=== PATIENT | male | born 1940 ===

== ENCOUNTER 2018-08-17 12:37 | Inpatient (IN) ==
[2018-08-17 14:00] LABS: Basophils % 0.4 %; Eosinophils # 0.1 K/mcL (0.0-0.6); Eosinophils % 0.5 %; Hematocrit 42.8 % (37.5-50.1); Hemoglobin 14.2 g/dL (12.9-16.9); Immature Granulocytes % 0.2 % (0-4); Lymphocytes # 0.7 K/mcL (0.6-4.6); Lymphocytes % 6.7 %; Mean Corpuscular HGB Conc 33.2 g/dL (31.6-35.5); Mean Corpuscular Hemoglobin 30.4 pg (28.0-33.3); Mean Corpuscular Volume 91.6 fL (83.0-100.0); Mean Platelet Volume 11.3 fL (9.4-12.4); Monocytes # 0.7 K/mcL (0.0-1.3); Monocytes % 7.3 %; Neutrophils # 8.3 K/mcL (1.6-8.9); Platelet Count 198 K/mcL (140-400); Red Blood Count 4.67 M/mcL (4.19-5.50); Red Cell Distribution Width 14.8 % (11.5-14.5); Segmented Neutrophils % 84.9 %; White Blood Count 9.7 K/mcL (4.3-11.1)
[2018-08-17 14:07] LABS: Bilirubin,Urine Negative (Negative); Blood,Urine Negative (Negative); Clarity,Urine Clear (Clear); Color,Urine Yellow (Yellow); Glucose,Urine (UA) Normal (Normal); INR 1.5; Ketones,Urine Negative (Negative); Leukocyte Esterase,Urine Negative (Negative); Nitrite,Urine Negative (Negative); PH,Urine 5.5 pH Units (5.0-8.0); Protein,Urine Trace mg/dL (Neg-Trace); Prothrombin Time 17.4 Seconds (9.4-12.1); Urobilinogen,Urine Normal (Normal)
[2018-08-17 14:10] LABS: Activated Partial Thrombo Time 33.1 Seconds (26.0-36.0)
[2018-08-17 14:18] LABS: Troponin I < 0.03 ng/mL (< 0.04)
[2018-08-17 14:19] LABS: Acetaminophen < 10 mcg/mL (10-20); Alanine Aminotransferase 30 Units/L (7-52); Albumin 4.2 g/dL (3.5-5.7); Albumin/Globulin Ratio 1.1 (1.1-2.2); Alkaline Phosphatase 52 Units/L (34-104); Aspartate Amino Transferase 30 Units/L (13-39); BUN/Creatinine Ratio 14 (6-26); Bilirubin,Total 0.9 mg/dL (0.3-1.0); Blood Urea Nitrogen 19 mg/dL (8-23); Calcium 9.2 mg/dL (8.6-10.3); Carbon Dioxide 22 mEq/L (23-29); Chloride 109 mEq/L (98-107); Ethanol < 10 mg/dL (Less than 10); Globulin 3.8 g/dL (2.4-3.5); Glucose 98 mg/dL (70-105); Magnesium 2.3 mg/dL (1.6-2.6); Osmolality,Calculated 290 (280-300); Phosphorous 2.3 mg/dL (2.7-4.5); Salicylate < 2.5 mg/dL (15.0-30.0); Sodium 139 mEq/L (136-145); eGFR For African Americans > 60 (> 60); eGFR For Non-African Americans 52 (> 60)
[2018-08-17 14:21] LABS: Amphetamine Screen,Urine Negative ng/mL (Cutoff=1000); Barbiturate Screen,Urine Negative ng/mL (Cutoff=200); Benzodiazepines Screen,Urine Negative ng/mL (Cutoff=200); Cannabinoid Screen,Urine Negative ng/mL (Cutoff = 50); Cocaine Screen,Urine Negative ng/mL (Cutoff= 300); Opiate Screen,Urine Negative ng/mL (Cutoff=300); Phencyclidine Screen,Urine Negative ng/mL (Cutoff=25)
[2018-08-17] MEDS ORDERED: Ondansetron ODT 4 MG TAB.RAPDIS SL PRN (15:09)
[2018-08-17] MEDS ORDERED: Naloxone 0.4 MG/ML INJ IVP PRN (15:09)
[2018-08-17] MEDS ORDERED: Mag Hydrox/Al Hydrox/Simeth 30 ML UDC PO PRN (15:09)
[2018-08-17] MEDS ORDERED: Nitroglycerin 0.4 MG TAB.SUBL SL PRN (15:11)
--- NOTE | 2018-08-17 16:06 | Emergency Department Note ---
Disposition Clinical Impression: Altered mental status Disposition: Admitted As Inpatient Condition: Fair Time of Disposition: 13:45 Altered Mental Status HPI - General Time Seen by Provider: 08/17/18 12:40 Source: patient, family, EMS Limitations: altered mental status Nursing Notes Reviewed: Yes Vital Signs Reviewed: Yes - History of Present Illness HPI Narrative: Mr. Hunt was brought to the emergency department today. He fell and could not get up. This degree of weakness is very unusual for him. He does fall about every 6 weeks per his report and the sister who accompanies him. He is not needed assistance getting up before today. On direct questioning he does not have a whole lot of recollection of anything after breakfast today. He typically walks around with a cane but needed a walker today. Sister who sets up his medications every day even though she lives 20 miles from his house says that he has been diagnosed with dementia and it seems to be getting worse lately and seems to be even worse today. Mr. Hunt denies hitting his head but again has very little recollection of the fall or of calling EMS for transport here to [facility]. He denies any current headache change of vision hearing loss speech difficulty neck pain numbness tingling in any extremity chest pain palpitations dizziness or lightheadedness abdominal pain fever chills nausea vomiting diarrhea. He does have a history of atrial fibrillation and sees Dr. Rangel a neurologist here in town per sister's report. Also per her report home health services have been initiated but there is no set date for the time of their arrival in his home to assist him. - Related Data Home Medications Medication Instructions Recorded Confirmed Finasteride [Proscar] 5 mg PO DAILY 06/06/17 08/17/18 Furosemide [Lasix] 20 mg PO DAILY 06/06/17 08/17/18 Lisinopril [Zestril] 10 mg PO DAILY 06/06/17 08/17/18 Metoprolol [Lopressor] 50 mg PO DAILY 06/06/17 08/17/18 Ranitidine HCl [Zantac] 300 mg PO DAILY 06/06/17 08/17/18 Sertraline [Zoloft] 25 mg PO HS 06/06/17 08/17/18 Tamsulosin HCl [Flomax] 0.4 mg PO 06/06/17 08/17/18 Nitroglycerin [Nitrostat] 0.4 mg SL Q5MIN PRN 09/04/17 08/17/18 Clopidogrel [Plavix] 75 mg PO DAILY 08/17/18 08/17/18 Simvastatin [Zocor] 40 mg PO HS 08/17/18 08/17/18 Warfarin [Coumadin] 3 mg PO 1800 08/17/18 08/17/18 Allergies Allergy/AdvReac Type Severity Reaction Status Date / Time adhesive Allergy Blister Verified 03/22/18 09:27 aspirin Allergy Swelling Verified 03/22/18 09:27 of Lip/Tongue/Throat Constitutional: Denies: fever, chills Eyes: Denies: vision change ENT ED: Denies: hearing loss Cardiovascular: Denies: chest pain, palpitations, dyspnea on exertion Respiratory: Denies: cough Gastrointestinal: Denies: abdominal pain, nausea, vomiting, diarrhea Genitourinary: Reports: other (No acute urinary symptoms) Musculoskeletal: Denies: back pain, neck pain Integumentary: Denies: lesions Neurological: Denies: headache, weakness, numbness, paresthesias Endocrine: Reports: fatigue Hematological/Lymphatic: Denies: easy bleeding, easy bruising Allergic/Immunologic: Denies: facial swelling Past Medical History - Past Medical History Medical history: Reports: atrial fibrillation, coronary artery disease, CVA, hyperlipidemia, hypertension, myocardial infarction, valvular heart disease Surgical history: Reports: cholecystectomy, coronary bypass (CABG) Psychiatric history: Reports: no psych history - Social History Smoking Status: Never smoker Smokeless Tobacco Status: No Alcohol use: Reports: none Drug use: Reports: none Physical Exam - General Limitations: altered mental status General appearance: alert, in no apparent distress - Head Head exam: atraumatic, normocephalic, normal inspection - Eye Eye exam: Present: normal appearance, PERRL, EOMI, other (Negative raccoon) - ENT ENT exam: normal exam, normal oropharynx, mucous membranes moist, TM's normal bilaterally, normal external ear exam, other (Negative Monroy sign) - Neck Neck exam: Present: normal inspection, full ROM. Absent: tenderness - Chest Chest inspection: Present: normal inspection, symmetric chest wall rise - Respiratory Respiratory exam: Present: normal lung sounds bilaterally. Absent: respiratory distress, wheezes, stridor - Cardiovascular Cardiovascular exam: Present: regular rate, normal rhythm, normal heart sounds. Absent: systolic murmur, diastolic murmur - Abdominal Exam Abdominal exam: Present: soft, Non-Tender - Extremities Exam Extremities exam: Present: normal inspection. Absent: pedal edema - Neurological Exam Neurological exam: Present: alert, CN II-XII intact. Absent: oriented X3 (Names name location but believes it is 2010. Has trouble with years and numbers per sister), motor sensory deficit - Psychiatric Psychiatric exam: Present: normal affect, normal mood - Skin Skin exam: Present: warm, dry Course Vital Signs Temperature 99.3 F 08/17/18 12:40 Pulse Rate 69 08/17/18 12:40 Respiratory Rate 18 08/17/18 12:40 Blood Pressure 154/79 08/17/18 12:40 O2 Sat by Pulse Oximetry 96 08/17/18 12:40 Temperature 99.3 F 08/17/18 12:40 Pulse Rate 69 08/17/18 12:40 Respiratory Rate 18 08/17/18 12:40 Blood Pressure 154/79 08/17/18 12:40 O2 Sat by Pulse Oximetry 96 08/17/18 12:40 Oxygen Delivery Oxygen Delivery Room Air Altered Mental Status - MDM Narrative Medical decision making narrative: Altered mental status. Underlying dementia but sister thinks he might be a bit more altered today. No recollection of the event that led to his ending up on the floor and needing lift assist. He could have hit his head and although I see no sign of trauma. He could have a concussion. No evidence from lab workup for any delirium nor do I suspect any infectious etiology. Nonetheless I do not believe he is safe to go home alone. His sister is in agreement. He might benefit from a social work consult to ensure a safe home going environment. I spoke with covering hospitalist here at [facility] and presented the case. She accepted admission. Mr. Hunt remained in stable condition awaiting transfer to the floor. History of atrial fibrillation. Normal sinus rhythm today. On chart review he has had a visit for an INR of 15 and today is 1.5. Difficult to say whether or not he is dosing his Coumadin correctly or not especially in light of mental status. He also falls rather frequently. Risks probably outweigh benefits for Coumadin at this point. He is on Plavix has an aspirin allergy and we will hold the Coumadin. Discussed with hospitalist. - Medical Records Medical records reviewed: Yes I reviewed the patient's medical records. - Lab Data Lab results reviewed: Yes I reviewed the patient's lab results. Result diagrams: 08/17/18 13:50 08/17/18 13:50 Lab Results 08/17/18 08/17/18 08/17/18 Range/Units 13:50 13:50 13:50 WBC (4.3-11.1) K/mcL RBC (4.19-5.50) M/mcL Hgb (12.9-16.9) g/dL Hct (37.5-50.1) % MCV (83.0-100.0) fL MCH (28.0-33.3) pg MCHC (31.6-35.5) g/dL RDW (11.5-14.5) % Plt Count (140-400) K/mcL MPV (9.4-12.4) fL Immature Gran % (0-4) % Seg Neutrophils % % Lymphocytes % % Monocytes % % Eosinophils % % Basophils % % Neutrophils # (1.6-8.9) K/mcL Lymphocytes # (0.6-4.6) K/mcL Monocytes # (0.0-1.3) K/mcL Eosinophils # (0.0-0.6) K/mcL Basophils # (0.0-0.2) K/mcL PT (9.4-12.1) Seconds INR APTT (26.0-36.0) Seconds Sodium (136-145) mEq/L Potassium (3.5-5.1) mEq/L Chloride (98-107) mEq/L Carbon Dioxide (23-29) mEq/L BUN (8-23) mg/dL Creatinine (0.70-1.30) mg/dL Est GFR ( Amer) (> 60) Est GFR (Non-Af Amer) (> 60) BUN/Creatinine Ratio (6-26) Glucose (70-105) mg/dL Calculated Osmolality (280-300) Calcium (8.6-10.3) mg/dL Phosphorus (2.7-4.5) mg/dL Magnesium (1.6-2.6) mg/dL Total Bilirubin (0.3-1.0) mg/dL AST (13-39) Units/L ALT (7-52) Units/L Alkaline Phosphatase (34-104) Units/L Creatine Kinase (30-223) Units/L Troponin I (< 0.04) ng/mL Serum Total Protein (6.4-8.9) g/dL Albumin (3.5-5.7) g/dL Globulin (2.4-3.5) g/dL Albumin/Globulin Ratio (1.1-2.2) TSH (0.340-5.600) mcIU/mL Urine Color Yellow (Yellow) Urine Clarity Clear (Clear) Urine pH 5.5 (5.0-8.0) pH Units Ur Specific [place] 1.020 (1.010-1.025) Urine Protein Trace (Neg-Trace) mg/dL Urine Glucose (UA) Normal (Normal) mg/dL Urine Ketones Negative (Negative) mg/dL Urine Blood Negative (Negative) Urine Nitrite Negative (Negative) Urine Bilirubin Negative (Negative) Urine Urobilinogen Normal (Normal) mg/dL Ur Leukocyte Esterase Negative (Negative) Ur Culture Indicated? NO (NO) Salicylates < 2.5 L (15.0-30.0) mg/dL Urine Opiates Screen Negative (Srdung=935) ng/mL Ur Buprenorphine Scrn Negative (Cutoff=5) ng/mL Acetaminophen < 10 L (10-20) mcg/mL Ur Barbiturates Screen Negative (Uwedaj=648) ng/mL Ur Phencyclidine Scrn Negative (Cutoff=25) ng/mL Ur Amphetamines Screen Negative (Nlojbj=5036) ng/mL U Benzodiazepines Scrn Negative (Mlrqmc=090) ng/mL Urine Cocaine Screen Negative (Cutoff= 300) ng/mL U Marijuana (THC) Screen Negative (Cutoff = 50) ng/mL Ur Drug Screen Interp See Below Ethyl Alcohol < 10 (Less than 10) mg/dL 08/17/18 08/17/18 08/17/18 Range/Units 13:50 13:50 13:50 WBC 9.7 (4.3-11.1) K/mcL RBC 4.67 (4.19-5.50) M/mcL Hgb 14.2 (12.9-16.9) g/dL Hct 42.8 (37.5-50.1) % MCV 91.6 (83.0-100.0) fL MCH 30.4 (28.0-33.3) pg MCHC 33.2 (31.6-35.5) g/dL RDW 14.8 H (11.5-14.5) % Plt Count 198 (140-400) K/mcL MPV 11.3 (9.4-12.4) fL Immature Gran % 0.2 (0-4) % Seg Neutrophils % 84.9 % Lymphocytes % 6.7 % Monocytes % 7.3 % Eosinophils % 0.5 % Basophils % 0.4 % Neutrophils # 8.3 (1.6-8.9) K/mcL Lymphocytes # 0.7 (0.6-4.6) K/mcL Monocytes # 0.7 (0.0-1.3) K/mcL Eosinophils # 0.1 (0.0-0.6) K/mcL Basophils # 0.0 (0.0-0.2) K/mcL PT 17.4 H (9.4-12.1) Seconds INR 1.5 APTT 33.1 (26.0-36.0) Seconds Sodium (136-145) mEq/L Potassium (3.5-5.1) mEq/L Chloride (98-107) mEq/L Carbon Dioxide (23-29) mEq/L BUN (8-23) mg/dL Creatinine (0.70-1.30) mg/dL Est GFR ( Amer) (> 60) Est GFR (Non-Af Amer) (> 60) BUN/Creatinine Ratio (6-26) Glucose (70-105) mg/dL Calculated Osmolality (280-300) Calcium (8.6-10.3) mg/dL Phosphorus (2.7-4.5) mg/dL Magnesium (1.6-2.6) mg/dL Total Bilirubin (0.3-1.0) mg/dL AST (13-39) Units/L ALT (7-52) Units/L Alkaline Phosphatase (34-104) Units/L Creatine Kinase 101 (30-223) Units/L Troponin I (< 0.04) ng/mL Serum Total Protein (6.4-8.9) g/dL Albumin (3.5-5.7) g/dL Globulin (2.4-3.5) g/dL Albumin/Globulin Ratio (1.1-2.2) TSH (0.340-5.600) mcIU/mL Urine Color (Yellow) Urine Clarity (Clear) Urine pH (5.0-8.0) pH Units Ur Specific [place] (1.010-1.025) Urine Protein (Neg-Trace) mg/dL Urine Glucose (UA) (Normal) mg/dL Urine Ketones (Negative) mg/dL Urine Blood (Negative) Urine Nitrite (Negative) Urine Bilirubin (Negative) Urine Urobilinogen (Normal) mg/dL Ur Leukocyte Esterase (Negative) Ur Culture Indicated? (NO) Salicylates (15.0-30.0) mg/dL Urine Opiates Screen (Xxnzob=157) ng/mL Ur Buprenorphine Scrn (Cutoff=5) ng/mL Acetaminophen (10-20) mcg/mL Ur Barbiturates Screen (Vbtdim=192) ng/mL Ur Phencyclidine Scrn (Cutoff=25) ng/mL Ur Amphetamines Screen (Ncjcca=5233) ng/mL U Benzodiazepines Scrn (Hhqqzu=428) ng/mL Urine Cocaine Screen (Cutoff= 300) ng/mL U Marijuana (THC) Screen (Cutoff = 50) ng/mL Ur Drug Screen Interp Ethyl Alcohol (Less than 10) mg/dL 08/17/18 08/17/18 Range/Units 13:50 13:50 WBC (4.3-11.1) K/mcL RBC (4.19-5.50) M/mcL Hgb (12.9-16.9) g/dL Hct (37.5-50.1) % MCV (83.0-100.0) fL MCH (28.0-33.3) pg MCHC (31.6-35.5) g/dL RDW (11.5-14.5) % Plt Count (140-400) K/mcL MPV (9.4-12.4) fL Immature Gran % (0-4) % Seg Neutrophils % % Lymphocytes % % Monocytes % % Eosinophils % % Basophils % % Neutrophils # (1.6-8.9) K/mcL Lymphocytes # (0.6-4.6) K/mcL Monocytes # (0.0-1.3) K/mcL Eosinophils # (0.0-0.6) K/mcL Basophils # (0.0-0.2) K/mcL PT (9.4-12.1) Seconds INR APTT (26.0-36.0) Seconds Sodium 139 (136-145) mEq/L Potassium 4.0 (3.5-5.1) mEq/L Chloride 109 H (98-107) mEq/L Carbon Dioxide 22 L (23-29) mEq/L BUN 19 (8-23) mg/dL Creatinine 1.33 H (0.70-1.30) mg/dL Est GFR ( Amer) > 60 (> 60) Est GFR (Non-Af Amer) 52 L (> 60) BUN/Creatinine Ratio 14 (6-26) Glucose 98 (70-105) mg/dL Calculated Osmolality 290 (280-300) Calcium 9.2 (8.6-10.3) mg/dL Phosphorus 2.3 L (2.7-4.5) mg/dL Magnesium 2.3 (1.6-2.6) mg/dL Total Bilirubin 0.9 (0.3-1.0) mg/dL AST 30 (13-39) Units/L ALT 30 (7-52) Units/L Alkaline Phosphatase 52 (34-104) Units/L Creatine Kinase (30-223) Units/L Troponin I < 0.03 (< 0.04) ng/mL Serum Total Protein 8.0 (6.4-8.9) g/dL Albumin 4.2 (3.5-5.7) g/dL Globulin 3.8 H (2.4-3.5) g/dL Albumin/Globulin Ratio 1.1 (1.1-2.2) TSH 1.605 (0.340-5.600) mcIU/mL Urine Color (Yellow) Urine Clarity (Clear) Urine pH (5.0-8.0) pH Units Ur Specific [place] (1.010-1.025) Urine Protein (Neg-Trace) mg/dL Urine Glucose (UA) (Normal) mg/dL Urine Ketones (Negative) mg/dL Urine Blood (Negative) Urine Nitrite (Negative) Urine Bilirubin (Negative) Urine Urobilinogen (Normal) mg/dL Ur Leukocyte Esterase (Negative) Ur Culture Indicated? (NO) Salicylates (15.0-30.0) mg/dL Urine Opiates Screen (Dskhlg=985) ng/mL Ur Buprenorphine Scrn (Cutoff=5) ng/mL Acetaminophen (10-20) mcg/mL Ur Barbiturates Screen (Itmwfr=797) ng/mL Ur Phencyclidine Scrn (Cutoff=25) ng/mL Ur Amphetamines Screen (Lhsnvv=5355) ng/mL U Benzodiazepines Scrn (Wtqtwo=511) ng/mL Urine Cocaine Screen (Cutoff= 300) ng/mL U Marijuana (THC) Screen (Cutoff = 50) ng/mL Ur Drug Screen Interp Ethyl Alcohol (Less than 10) mg/dL - Radiology Data Radiology results reviewed: Yes I reviewed the patient's radiology results. - EKG Data EKG attestation: Yes I reviewed and interpreted this EKG. EKG results narrative: EKG is interpreted by me normal sinus rhythm 69 bpm consistent with right bundle branch block. Left axis deviation. No ST elevations or depressions. No evidence of hypertrophy. There do not appear to be any significant changes compared to September 2017. TPA Checklist - LKW: 3-4.5 hrs Add. Warnings/Precautions Patient/family understanding: The patient/family members have been counseled and understood the risk, benefit, and alternatives of treatment.
--- NOTE | 2018-08-17 17:59 | Internal Med History&Physical ---
Date of Encounter: 08/18/18 Time of Encounter: 16:20 Assessment and Plan (1) Syncope Current visit: Yes Status: Acute pt with unwitnessed syncopal event at home after having large bout of diarrhea with incontinance possible vagal response combined with dehydration and or effect of his blood pressure medications this may also account for his mental status change observed on top of his baseline hx of dementia ct head was ok no current deficits no head trauma no reported hx of same will monitor bp and encourage po intake Qualifiers: Syncope type: heat syncope Encounter type: initial encounter Qualified Code(s): T67.1XXA - Heat syncope, initial encounter (2) Diarrhea Current visit: Yes Status: Acute pt also has distention of abd will treat with simethicone and oral fiber will get CT abdomen and pelvis pt has hx of bph and ua was ok in ed Qualifiers: Diarrhea type: unspecified type Qualified Code(s): R19.7 - Diarrhea, unspecified Internal Medicine - H&P: HPI Chief complaint: mental status change Admitted From: Home History of present illness: Mr. Hunt is a 78 year old white male who was admitted through the emergency department with mental status changes and confusion possible delirium. He had syncopal episode at home alone. He reported that he went into the bathroom had a large amount of diarrhea with incontinence over the bathroom and as he left the bathroom he went down he is not sure if he passed out denies hitting his head. Denies headache. He reported that he felt somewhat confused after. Says an hour or so later he thinks he called one of his sisters. A sister is present who tells me that he has been incontinent of diarrhea type stool for the recent time. Unsure how long. The patient is a poor historian and is currently oriented 2 sister reports he is better than he was earlier in the day. The patient did have a negative CT of the head in the ED. The patient reports abdominal bloating but denies abdominal pain denies chest pain or shortness of breath. Sister reports that he has a history of some dementia and she is unsure of other details. The patient's sister is his POA. Sister reports the patient has been fairly healthy. Except he had about 20 years ago a mitral valve that was leaky. She says at [facility] he had it repaired and then repaired again and then a third time had a mitral mechanical valve put in because the original repair did not work. She says his surgeon may have been Dr. Aviles at [facility]. Pt has hx a fib but has recently been in SR Says patient has been on Coumadin for about 20 years and doing well no known bleeding problems. Patient had stable hemoglobin in the ED. Sister says patient has dealt with BPH. Pt reports urination ok. 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 He also recalls that he worked over the [place]val[place] with troubled [employer] teaching them summer classes at a [employer]. EXAM Central obese WM alert fair eye contact short attention span oriented x 2 currently HEENT perrla eom intact dry oral mucosa slight septal deviation Neck no mass no bruit Heart distant tones trace murm regular lungs clear bilat abd obese distended bs present but hypoactive no mass but diff exam extrem pulses palp symetric no edema skin intact no lesions noted neuro no gross focal deficits Past Med Surg Social Fam HX - Past Medical History Medical history: atrial fibrillation, coronary artery disease, CVA, hyperlipidemia, hypertension, myocardial infarction, valvular heart disease Psychiatric history: no psych history - Past Surgical History Surgical History: cholecystectomy, coronary bypass (CABG) Additional surgical history: Mitral criselda repair x 2 then replacement at [facility] about 1998 - Social History Smoking Status: Never smoker Smokeless Tobacco Status: No Alcohol use: none Drug use: none - Family History Mother Adopted: No Living Status: Age at : 89 Hx Family Cardiac Disorders: No Hx Family Respiratory Disorders: No Hx Family Cancer: No Hx Family GI Disorders: No Hx Family Genitourinary Disorders: No Hx Family Endocrine Disorder: No Hx Family Musculoskeletal Disorders: No Hx Family Neuromuscular Disorders: No Hx Family Neurologic Disorders: Yes (alzheimers) Hx Family Autoimmune Disorders: No Hx Family Reproductive Disorders: No Hx Family Psychosocial Disorders: No Hx Family Medical Disorders: No Internal Medicine - H&P: Meds Finasteride [Proscar] 5 mg PO DAILY 06/06/17 [History] Furosemide [Lasix] 20 mg PO DAILY 06/06/17 [History] Lisinopril [Zestril] 10 mg PO DAILY 06/06/17 [History] Metoprolol [Lopressor] 50 mg PO DAILY 06/06/17 [History] Ranitidine HCl [Zantac] 300 mg PO DAILY 06/06/17 [History] Sertraline [Zoloft] 25 mg PO HS 06/06/17 [History] Tamsulosin HCl [Flomax] 0.4 mg PO HS 06/06/17 [History] Nitroglycerin [Nitrostat] 0.4 mg SL Q5MIN PRN 09/04/17 [History] Clopidogrel [Plavix] 75 mg PO DAILY 08/17/18 [History] Simvastatin [Zocor] 40 mg PO HS 08/17/18 [History] Warfarin 3.5 mg PO DAILY 08/17/18 [History] Warfarin [Coumadin] 3 mg PO 1800 08/17/18 [History] Allergy/AdvReac Type Severity Reaction Status Date / Time adhesive Allergy Blister Verified 03/22/18 09:27 aspirin Allergy Swelling Verified 03/22/18 09:27 of Lip/Tongue/Throat All Systems PM: A 10-system review of systems was performed and is negative for pertinent f indings except as documented above in the HPI. - Constitutional Vitals: Temp Pulse Resp BP Pulse Ox 99.0 F 70 18 182/74 97 08/17/18 16:15 08/17/18 16:15 08/17/18 16:15 08/17/18 16:15 08/17/18 16:15 Internal Med - H&P Results - Labs CBC & Chem 7: 08/18/18 04:43 08/18/18 04:43 Labs: Short CBC 08/17/18 Range/Units 13:50 WBC 9.7 (4.3-11.1) K/mcL Hgb 14.2 (12.9-16.9) g/dL Hct 42.8 (37.5-50.1) % Plt Count 198 (140-400) K/mcL Neutrophils # 8.3 (1.6-8.9) K/mcL BMP 08/17/18 13:50 Sodium 139 Potassium 4.0 Chloride 109 H Carbon Dioxide 22 L BUN 19 Creatinine 1.33 H Glucose 98 Calcium 9.2 Cardiac Enzymes 08/17/18 Range/Units 13:50 Troponin I < 0.03 (< 0.04) ng/mL Liver Function 08/17/18 Range/Units 13:50 Total Bilirubin 0.9 (0.3-1.0) mg/dL AST 30 (13-39) Units/L ALT 30 (7-52) Units/L Alkaline Phosphatase 52 (34-104) Units/L Albumin 4.2 (3.5-5.7) g/dL Urine 08/17/18 Range/Units 13:50 Urine Color Yellow (Yellow) Urine Clarity Clear (Clear) Urine pH 5.5 (5.0-8.0) pH Units Ur Specific [place] 1.020 (1.010-1.025) Urine Protein Trace (Neg-Trace) mg/dL Urine Glucose (UA) Normal (Normal) mg/dL - Impressions ITS Impressions Chest X-Ray 08/17/18 12:57 IMPRESSION: 1. No acute abnormality. D/ / Pio Jerez MD / Pio Jerez MD Interpreting Provider: Pio Jerez MD Head CT 08/17/18 12:58 IMPRESSION: No acute intracranial abnormality. Moderate microvascular disease. D/ / 08/17/2018 13:49:03 Jeb Caballero MD / ulices Interpreting Provider: Jeb Caballero MD
[2018-08-18 05:02] LABS: Basophils # 0.1 K/mcL (0.0-0.2); Basophils % 0.8 %; Eosinophils # 0.1 K/mcL (0.0-0.6); Hemoglobin 12.8 g/dL (12.9-16.9); Immature Granulocytes % 0.1 % (0-4); Lymphocytes # 1.1 K/mcL (0.6-4.6); Mean Corpuscular Hemoglobin 29.7 pg (28.0-33.3); Mean Corpuscular Volume 92.8 fL (83.0-100.0); Mean Platelet Volume 11.4 fL (9.4-12.4); Monocytes # 0.9 K/mcL (0.0-1.3); Monocytes % 12.8 %; Neutrophils # 4.9 K/mcL (1.6-8.9); Platelet Count 172 K/mcL (140-400); Red Blood Count 4.31 M/mcL (4.19-5.50); Red Cell Distribution Width 14.9 % (11.5-14.5); Segmented Neutrophils % 69.3 %; White Blood Count 7.1 K/mcL (4.3-11.1)
[2018-08-18 05:28] LABS: BUN/Creatinine Ratio 20 (6-26); Blood Urea Nitrogen 24 mg/dL (8-23); Calcium 8.7 mg/dL (8.6-10.3); Carbon Dioxide 25 mEq/L (23-29); Chloride 110 mEq/L (98-107); Glucose 113 mg/dL (70-105); Osmolality,Calculated 293 (280-300); Potassium 3.6 mEq/L (3.5-5.1); Sodium 139 mEq/L (136-145); eGFR For African Americans > 60 (> 60); eGFR For Non-African Americans 58 (> 60)
[2018-08-18] MEDS ORDERED: Isovue-370 500 ML BOTTLE IVP ONE (06:37)
[2018-08-18] MEDS: *HR* Enoxaparin 120 MG/0.8 ML SYRINGE SQ SCH ×2 (06:46→18:57)
[2018-08-18] MEDS ORDERED: *HR* Enoxaparin 40 MG/0.4 ML SYRINGE SQ SCH (07:00)
[2018-08-18 07:54] LABS: INR 1.5; Prothrombin Time 17.2 Seconds (9.4-12.1)
[2018-08-18] MEDS ORDERED: Isovue-370 500 ML BOTTLE PO ONE (08:08)
[2018-08-18] MEDS: Famotidine 20 MG TABLET PO SCH (08:55)
[2018-08-18] MEDS: Furosemide 20 MG TABLET PO SCH (08:55)
[2018-08-18] MEDS: Finasteride 5 MG TABLET PO SCH (08:55)
--- NOTE | 2018-08-18 17:53 | Internal Med Progress Note ---
Date of Encounter: 08/18/18 Time of Encounter: 17:10 - Assessment and plan (1) Syncope Current Visit: Yes Status: Acute Qualifiers: Syncope type: heat syncope Encounter type: initial encounter Qualified Code(s): T67.1XXA - Heat syncope, initial encounter (2) Diarrhea Current Visit: Yes Status: Acute Qualifiers: Diarrhea type: unspecified type Qualified Code(s): R19.7 - Diarrhea, unspecified - Subjective Interval history: Assessment and Plan (1) Syncope Current visit: Yes Status: Acute pt with unwitnessed syncopal event at home after having large bout of diarrhea with incontinance possible vagal response combined with dehydration and or effect of his blood pressure medications this may also account for his mental status change observed on top of his baseline hx of dementia ct head was ok no current deficits no head trauma no reported hx of same will monitor bp and encourage po intake he was noncompliant at home with his coumadin that he has taken for 20 yr for mitral valve and a fib sister says. We do not have his [facility] surg records inr not therapeutic lovenox 1 mg/kg bridge therapeutic bid dosing and coumadin restarted pharmacy to dose daily pt inr. Qualifiers: Encounter type: initial encounter (2) Diarrhea Current visit: Yes Status: Acute pt also has distention of abd that is mildly better today treating with simethicone and oral fiber still has some urgency but was not incontinent in bed today CT abdomen and pelvis today pt has hx of bph and ua was ok in ed Qualifiers: Diarrhea type: unspecified type Qualified Code(s): R19.7 - Diarrhea, unspecified Interval hx I here for mental status change syncope diarrhea Admitted From: Home lives alone Mr. Hunt is a 78 year old white male who was admitted through the emergency department with mental status changes and confusion possible delirium. He had syncopal episode at home alone. He reported that he went into the bathroom had a large amount of diarrhea with incontinence over the bathroom and as he left the bathroom he went down he is not sure if he passed out denies hitting his head. Denies headache. He reported that he felt somewhat confused after. Says an hour or so later he thinks he called one of his sisters. A sister is present who tells me that he has been incontinent of diarrhea type stool for the recent time. Unsure how long. The patient is a poor historian a nd is currently oriented 2 sister reports he is better than he was earlier in the day. The patient did have a negative CT of the head in the ED. The patient reports abdominal bloating but denies abdominal pain denies chest pain or shortness of breath. Sister reports that he has a history of some dementia and she is unsure of other details. The patient's sister is his POA. Code status is dnr Sister reports the patient has been fairly healthy. Except he had about 20 years ago a mitral valve that was leaky. She says at [facility] he had it repaired and then repaired again and then a third time had a mitral mechanical valve put in because the original repair did not work. She says his surgeon may have been Dr. Aviles at [facility]. Pt has hx a fib but has recently been in SR Says patient has been on Coumadin for about 20 years and doing well no known bleeding problems. Patient had stable hemoglobin in the ED. Sister says patient has dealt with BPH. Pt reports urination ok. 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 Pt sister tells that family has been wanting to get him into programs for help since he is unable to be reliable about self care and med taking due to slow progress of dementia . Today he is feeling that diarrhea is less. No further syncope. He had inr of 1.5 so lovenox therapeutic dose and coumadin restarted. pharm to dose. CT abd report pending EXAM Central obese WM alert fair eye contact short attention span oriented x 2 currently HEENT perrla eom intact dry oral mucosa slight septal deviation Neck no mass no bruit Heart distant tones trace murm regular lungs clear bilat abd obese distended bs present but hypoactive no mass but diff exam extrem pulses palp symetric no edema skin intact no lesions noted neuro no gross focal deficits - Constitutional Vitals: Temp Pulse Resp BP Pulse Ox 98.0 F 75 15 132/60 96 08/18/18 16:59 08/18/18 16:59 08/18/18 16:59 08/18/18 16:59 07/14/19 16:59 Internal Medicine: Result - Labs CBC & Chem 7: 08/18/18 04:43 08/18/18 04:43 Labs: Short CBC 08/18/18 Range/Units 04:43 WBC 7.1 (4.3-11.1) K/mcL Hgb 12.8 L (12.9-16.9) g/dL Hct 40.0 (37.5-50.1) % Plt Count 172 (140-400) K/mcL Neutrophils # 4.9 (1.6-8.9) K/mcL BMP 08/18/18 04:43 Sodium 139 Potassium 3.6 Chloride 110 H Carbon Dioxide 25 BUN 24 H Creatinine 1.22 Glucose 113 H Calcium 8.7 - ABG Interpretation ABG results: PT/INR, D-dimer PT 17.2 Seconds (9.4-12.1) H 08/18/18 07:22 - Impressions Impressions Abdomen/Pelvis CT 08/18/18 06:37 IMPRESSION: Punctate left intrarenal stone is redemonstrated. Numerous urinary bladder stones are present. Marked enlargement of the prostate is redemonstrated with the appearance of urinary bladder distension. Urinary bladder diverticula are noted. These arise from the superior aspect of the urinary bladder. There is stable appearance of mild stranding of the fat adjacent to the urinary bladder diverticula. Correlate with signs and/or symptoms of cystitis. Status post cholecystectomy. Small hiatal hernia. D/ / 08/18/2018 09:11:33 Venkat Martinez MD / ulices Interpreting Provider: Venkat Martinez MD Consult Discharge Plan - Plan Referrals: Jose Abbott, HEALTHCARE CONSULTANT [Primary Care Provider] -
[2018-08-18] MEDS ORDERED: *HR* Warfarin 4 MG TABLET PO ONE (18:00)
[2018-08-18] MEDS ORDERED: Warfarin perPT PO PRN (18:00)
[2018-08-18] MEDS: Lactobacillus 1 EACH CAP.SPRINK PO SCH (20:34)
[2018-08-18] MEDS: Psyllium 1 PACKET POWD.PACK PO SCH (20:35)
[2018-08-18] MEDS: Sucralfate 1 GM TABLET PO SCH (20:35)
[2018-08-19] MEDS: *HR* Enoxaparin 120 MG/0.8 ML SYRINGE SQ SCH ×2 (05:49→16:41)
[2018-08-19] MEDS: Famotidine 20 MG TABLET PO SCH (07:49)
[2018-08-19] MEDS: Finasteride 5 MG TABLET PO SCH (07:49)
[2018-08-19] MEDS: Sucralfate 1 GM TABLET PO SCH ×4 (07:49→21:34)
[2018-08-19] MEDS: Lactobacillus 1 EACH CAP.SPRINK PO SCH ×2 (07:49→21:33)
[2018-08-19] MEDS: Furosemide 20 MG TABLET PO SCH (07:50)
[2018-08-19] MEDS: Psyllium 1 PACKET POWD.PACK PO SCH ×2 (07:50→21:14)
[2018-08-19 08:57] LABS: INR 1.4; Prothrombin Time 15.5 Seconds (9.4-12.1)
[2018-08-19 10:22] LABS: Alanine Aminotransferase 24 Units/L (7-52); Albumin 3.8 g/dL (3.5-5.7); Albumin/Globulin Ratio 1.2 (1.1-2.2); Alkaline Phosphatase 44 Units/L (34-104); Aspartate Amino Transferase 26 Units/L (13-39); BUN/Creatinine Ratio 18 (6-26); Bilirubin,Direct 0.2 mg/dL (0.0-0.2); Bilirubin,Indirect 0.6 mg/dL (0.0-1.2); Bilirubin,Total 0.8 mg/dL (0.3-1.0); Blood Urea Nitrogen 20 mg/dL (8-23); Calcium 8.7 mg/dL (8.6-10.3); Carbon Dioxide 26 mEq/L (23-29); Chloride 108 mEq/L (98-107); Globulin 3.3 g/dL (2.4-3.5); Glucose 103 mg/dL (70-105); Osmolality,Calculated 289 (280-300); Potassium 3.8 mEq/L (3.5-5.1); Sodium 138 mEq/L (136-145); Total Protein 7.1 g/dL (6.4-8.9); eGFR For African Americans > 60 (> 60); eGFR For Non-African Americans > 60 (> 60)
--- NOTE | 2018-08-19 10:23 | Internal Med Progress Note ---
Date of Encounter: 08/19/18 Time of Encounter: 10:22 - Assessment and plan (1) Mechanical heart valve present Current Visit: Yes Status: Acute Assessment and plan: Continue Coumadin. Monitor INR. Pharmacy to dose. INR 1.5. (2) Dementia Current Visit: Yes Status: Acute Assessment and plan: Continue supportive care. Progressive disease. Assist with ADLs. Therapy to eval. Qualifiers: Dementia type: unspecified type Dementia behavioral disturbance: without behavioral disturbance Qualified Code(s): F03.90 - Unspecified dementia without behavioral disturbance (3) Fall Current Visit: Yes Status: Acute Assessment and plan: Patient sustained fall at home. Will have PT to eval and treat. Assist with ADLs as necessary. Qualifiers: Encounter type: sequela Qualified Code(s): W19.XXXS - Unspecified fall, sequela - Time Spent With Patient less than 15 minutes - Constitutional Vitals: Temp Pulse Resp BP Pulse Ox 97.8 F 63 15 165/75 97 08/19/18 08:05 08/19/18 08:05 08/19/18 08:05 08/19/18 08:05 08/19/18 08:05 General appearance: Present: cooperative, A&O X 3, pleasant, no acute distress, answers questions appropriately - Head Head exam: Present: atraumatic, normocephalic - Eye Eye exam: Present: PERRL, conjuntiva pink, sclera anicteric Pupils: Present: PERRL - Neck Neck exam general surgery: Present: supple, trachea midline. Absent: lymphadenopathy - Respiratory Respiratory exam: Present: CTAB. Absent: accessory muscle use, rales, rhonchi, wheezes - Cardiovascular Cardiovascular exam: Present: RRR, +S1, +S2. Absent: diastolic murmur, gallop, rubs, systolic murmur - GI/Abdominal GI/Abdominal exam: Present: normal bowel sounds, soft, no peritoneal signs. Absent: distended, tenderness - Extremities Exam Extremities exam: Present: warm, radial pulses palpable and symmetrical. Absent: calf tenderness, cyanotic, pedal edema - Neurological Exam Neurological exam: Present: CN II-XII intact, oriented X3, no focal deficits. Absent: pronater drift, facial droop, speech deficit - Skin Skin exam: Present: dry, intact Internal Medicine: Result - Labs CBC & Chem 7: 08/18/18 04:43 08/18/18 04:43 - ABG Interpretation ABG results: PT/INR, D-dimer PT 17.2 Seconds (9.4-12.1) H 08/18/18 07:22 - Impressions Impressions Abdomen/Pelvis CT 08/18/18 06:37 IMPRESSION: Punctate left intrarenal stone is redemonstrated. Numerous urinary bladder stones are present. Marked enlargement of the prostate is redemonstrated with the appearance of urinary bladder distension. Urinary bladder diverticula are noted. These arise from the superior aspect of the urinary bladder. There is stable appearance of mild stranding of the fat adjacent to the urinary bladder diverticula. Correlate with signs and/or symptoms of cystitis. Status post cholecystectomy. Small hiatal hernia. D/ / 08/18/2018 09:11:33 Venkat Martinez MD / ulices Interpreting Provider: Venkat Martinez MD Consult Discharge Plan - Plan Referrals: Jose Abbott, CLIMATOLOGY PROFESSOR [Primary Care Provider] -
--- NOTE | 2018-08-19 16:50 | Electrocardiograph Report ---
[place] [id number] Test Date: 2018-08-17 Pat Name: William Hunt Department: EDG1 Room: 114 Gender: M [employer]: : 1940 Requested By: Paul Chang Order Number: [id number] Reading MD: Kadeem Kurtz Measurements Intervals Ney Rate: 69 P: 40 WY: 208 QRS: -73 QRSD: 147 T: 51 QT: 445 QTc: 477 Interpretive Statements Sinus rhythm Borderline prolonged WY interval RBBB and LAFB Electronically Signed On 08-19-2018 16:49:06 EDT by Kadeem Kurtz
[2018-08-19] MEDS ORDERED: *HR* Warfarin 4 MG TABLET PO ONE (18:00)
[2018-08-20] MEDS: *HR* Enoxaparin 120 MG/0.8 ML SYRINGE SQ SCH ×2 (04:37→17:21)
[2018-08-20 07:12] LABS: INR 1.3; Prothrombin Time 15.2 Seconds (9.4-12.1)
[2018-08-20] MEDS: Finasteride 5 MG TABLET PO SCH (08:35)
[2018-08-20] MEDS: Famotidine 20 MG TABLET PO SCH (08:35)
[2018-08-20] MEDS: Lactobacillus 1 EACH CAP.SPRINK PO SCH ×2 (08:35→21:53)
[2018-08-20] MEDS: Furosemide 20 MG TABLET PO SCH (08:35)
[2018-08-20] MEDS: Sucralfate 1 GM TABLET PO SCH ×4 (08:35→21:53)
[2018-08-20] MEDS: Psyllium 1 PACKET POWD.PACK PO SCH ×2 (08:36→21:50)
--- NOTE | 2018-08-20 08:36 | Physician Discharge Referral ---
Home Health/Hosp Referral Info Transfer to: Home Health Provider in Charge Post Discharge: PCP - Diagnosis (1) Mechanical heart valve present Priority: Secondary Status: Chronic (2) Dementia Priority: Primary Status: Chronic (3) Fall Priority: Primary Status: Acute - Respiratory Orders Smoking Cessation: Smoking cessation has been advised. For more information, call the [place] Tobacco Quit Line at 8-141-BHEO-NOW. - Diet/Nutrition Diet/Nutrition Orders: Regular - Activity Activity Orders: Ambulate, Walker - Services Needed Following services are medically necessary services: Physical Therapy - Transfer Medications Home Medications: Finasteride [Proscar] 5 mg PO DAILY 06/06/17 [History] Furosemide [Lasix] 20 mg PO DAILY 06/06/17 [History] Lisinopril [Zestril] 10 mg PO DAILY 06/06/17 [History] Metoprolol [Lopressor] 50 mg PO DAILY 06/06/17 [History] Ranitidine HCl [Zantac] 300 mg PO DAILY 06/06/17 [History] Sertraline [Zoloft] 25 mg PO HS 06/06/17 [History] Tamsulosin HCl [Flomax] 0.4 mg PO HS 06/06/17 [History] Nitroglycerin [Nitrostat] 0.4 mg SL Q5MIN PRN 09/04/17 [History] Clopidogrel [Plavix] 75 mg PO DAILY 08/17/18 [History] Simvastatin [Zocor] 40 mg PO HS 08/17/18 [History] Warfarin 3.5 mg PO DAILY 08/17/18 [History] Warfarin [Coumadin] 3 mg PO 1800 08/17/18 [History] Allergies/Adverse Reactions: Allergy/AdvReac Type Severity Reaction Status Date / Time adhesive Allergy Blister Verified 03/22/18 09:27 aspirin Allergy Swelling Verified 03/22/18 09:27 of Lip/Tongue/Throat Certification: Further, I certify that my clinical findings support that this patient is homebound (i.e. absences from home require considerable and taxing effort and are for medical reasons or hindu services or infrequently or short duration when for other reasons) because: Homebound Reason: Patient requires assistance of a person or device to safely leave home, Leaving home requires considerable and taxing effort due to condition Attestation: My signature below is to certify that this patient is under my care and that I, or nurse practitioner, or a physician's assistant foreman working with me, has a [id number] encounter with this patient.
--- NOTE | 2018-08-20 10:34 | Internal Med Progress Note ---
Date of Encounter: 08/20/18 Time of Encounter: 10:32 - Assessment and plan (1) Mechanical heart valve present Current Visit: Yes Status: Chronic Assessment and plan: Continue Coumadin and lovenox. Monitor INR. Pharmacy to dose. INR 1.3 (2) Dementia Current Visit: Yes Status: Chronic Assessment and plan: Continue supportive care. Progressive disease. Assist with ADLs. Therapy to eval. Qualifiers: Dementia type: unspecified type Dementia behavioral disturbance: without behavioral disturbance Qualified Code(s): F03.90 - Unspecified dementia without behavioral disturbance (3) Fall Current Visit: Yes Status: Acute Assessment and plan: Patient sustained fall at home. continue PT. Assist with ADLs as necessary. Qualifiers: Encounter type: sequela Qualified Code(s): W19.XXXS - Unspecified fall, sequela - Time Spent With Patient less than 15 minutes - Subjective Interval history: Patient INR continues to be sub therapeutic, 1.3 today. Discussed with patient to stay another day to try to regulate INR. Patient denies any pain or discomfort, denies fever, chills, nausea vomiting or diarrhea. Participated with therapy evaluation yesterday. Therapy suggests to ambulate with walker instead of cane, he uses cane at home currently. Discussed with sister about having home health physical therapy continue to come in to work with him as well as passport to assist with medication administration. - Constitutional Vitals: Temp Pulse Resp BP Pulse Ox 97.7 F 63 16 138/80 96 08/20/18 08:00 08/20/18 08:00 08/20/18 08:00 08/20/18 08:00 08/20/18 08:00 General appearance: Present: cooperative, A&O X 3, pleasant, no acute distress, answers questions appropriately - Head Head exam: Present: atraumatic, normocephalic - Eye Eye exam: Present: PERRL, conjuntiva pink, sclera anicteric Pupils: Present: PERRL - Neck Neck exam general surgery: Present: supple, trachea midline. Absent: lymphadenopathy - Respiratory Respiratory exam: Present: CTAB. Absent: accessory muscle use, rales, rhonchi, wheezes - Cardiovascular Cardiovascular exam: Present: RRR, +S1, +S2. Absent: diastolic murmur, gallop, rubs, systolic murmur - GI/Abdominal GI/Abdominal exam: Present: normal bowel sounds, soft, no peritoneal signs. Absent: distended, tenderness - Extremities Exam Extremities exam: Present: warm, radial pulses palpable and symmetrical. Absent: calf tenderness, cyanotic, pedal edema Additional comments: Salvatore up on - Neurological Exam Neurological exam: Present: CN II-XII intact, oriented X3, no focal deficits. Absent: pronater drift, facial droop, speech deficit - Skin Skin exam: Present: dry, intact Internal Medicine: Result - Labs CBC & Chem 7: 08/18/18 04:43 08/19/18 07:55 - ABG Interpretation ABG results: PT/INR, D-dimer PT 15.2 Seconds (9.4-12.1) H 08/20/18 06:34 Consult Discharge Plan - Plan Referrals: Jose Abbott, QUALITY CONTROL CHECKER [Primary Care Provider] -
[2018-08-20] MEDS ORDERED: *HR* Warfarin 7.5 MG TABLET PO ONE (18:00)
[2018-08-21] MEDS: *HR* Enoxaparin 120 MG/0.8 ML SYRINGE SQ SCH ×2 (04:04→17:22)
[2018-08-21 06:34] LABS: INR 1.5; Prothrombin Time 16.6 Seconds (9.4-12.1)
[2018-08-21] MEDS: Finasteride 5 MG TABLET PO SCH (08:02)
[2018-08-21] MEDS: Famotidine 20 MG TABLET PO SCH (08:02)
[2018-08-21] MEDS: Lactobacillus 1 EACH CAP.SPRINK PO SCH ×2 (08:02→21:34)
[2018-08-21] MEDS: Furosemide 20 MG TABLET PO SCH (08:02)
[2018-08-21] MEDS: Sucralfate 1 GM TABLET PO SCH ×4 (08:03→21:35)
[2018-08-21] MEDS: Psyllium 1 PACKET POWD.PACK PO SCH ×2 (08:03→19:57)
[2018-08-21] MEDS ORDERED: *HR* Warfarin 5 MG TABLET PO ONE (08:18)
--- NOTE | 2018-08-21 10:50 | Internal Med Progress Note ---
Date of Encounter: 08/21/18 Time of Encounter: 10:48 - Assessment and plan (1) Dementia Current Visit: Yes Status: Chronic Assessment and plan: Patient continues to have difficulty with short-term memory recall which was noted during conversation and questioning. Also states that at times he has difficulty maintaining his INR at home which may indicate poor medication compliance. Patient reportedly lives at home alone. We will consult social service to evaluate. Qualifiers: Dementia type: unspecified type Dementia behavioral disturbance: without behavioral disturbance Qualified Code(s): F03.90 - Unspecified dementia without behavioral disturbance (2) Atrial fibrillation Current Visit: Yes Status: Acute Assessment and plan: No acute issues. Patient's heart rate remains irregular but ventricular rate is controlled less than 100. Vital signs are stable. Patient continues on Coumadin which currently is subtherapeutic at 1.5. Patient had received extra dosing today and will be rechecked in the morning Qualifiers: Atrial fibrillation type: unspecified Qualified Code(s): I48.91 - Unspecified atrial fibrillation (3) Mechanical heart valve present Current Visit: Yes Status: Chronic Assessment and plan: No acute issues at this time. Patient remains subtherapeutic with his Coumadin INR at 1.5. Patient received extra dosing of Coumadin today and will recheck his INR the morning. Patient continues on weight-based Lovenox at this time for bridging. - Time Spent With Patient less than 15 minutes - Subjective Interval history: Patient appears relaxed and currently denies any discomforts or shortness of br eath. Patient states that he is anxious to be discharged home. Patient noted to continue to have difficulty with short-term memory recall which was noted during his conversation. Nursing reports patient lives at home alone. Patient has stated the at times has difficulty maintaining his INR with his Coumadin was could indicate poor medication compliance - Constitutional Vitals: Temp Pulse Resp BP Pulse Ox 97.8 F 61 16 154/79 97 08/21/18 07:50 08/21/18 07:50 08/21/18 07:50 08/21/18 07:50 08/21/18 07:50 General appearance: Present: cooperative, A&O X 3, pleasant, no acute distress, answers questions appropriately - Head Head exam: Present: atraumatic, normocephalic - Eye Eye exam: Present: PERRL, conjuntiva pink, sclera anicteric Pupils: Present: PERRL - Neck Neck exam general surgery: Present: supple, trachea midline. Absent: lymphadenopathy - Respiratory Respiratory exam: Present: decreased breath sounds, CTAB. Absent: accessory muscle use, rales, rhonchi, wheezes - Cardiovascular Cardiovascular exam: Present: irregular rhythm, RRR, +S1, +S2. Absent: diastolic murmur, gallop, rubs, systolic murmur Additional comments: Patient with systolic click murmur which is produced from his mechanical mitral valve - GI/Abdominal GI/Abdominal exam: Present: normal bowel sounds, soft, no peritoneal signs. Ab sent: distended, tenderness - Extremities Exam Extremities exam: Present: warm, radial pulses palpable and symmetrical. Absent: calf tenderness, cyanotic, pedal edema - Neurological Exam Neurological exam: Present: CN II-XII intact, oriented X3, no focal deficits. Absent: pronater drift, facial droop, speech deficit - Skin Skin exam: Present: dry, intact Internal Medicine: Result - Labs CBC & Chem 7: 08/18/18 04:43 08/19/18 07:55 - ABG Interpretation ABG results: PT/INR, D-dimer PT 16.6 Seconds (9.4-12.1) H 08/21/18 06:18 Consult Discharge Plan - Plan Referrals: Jose Abbott JUNIOR WEB DEVELOPER [Primary Care Provider] -
[2018-08-22] MEDS: *HR* Enoxaparin 120 MG/0.8 ML SYRINGE SQ SCH ×2 (04:37→19:30)
[2018-08-22 06:26] LABS: INR 1.6; Prothrombin Time 18.7 Seconds (9.4-12.1)
[2018-08-22] MEDS: Sucralfate 1 GM TABLET PO SCH ×4 (08:24→19:52)
[2018-08-22] MEDS: Famotidine 20 MG TABLET PO SCH (08:24)
[2018-08-22] MEDS: Finasteride 5 MG TABLET PO SCH (08:24)
[2018-08-22] MEDS: Lactobacillus 1 EACH CAP.SPRINK PO SCH ×2 (08:24→19:52)
[2018-08-22] MEDS: Furosemide 20 MG TABLET PO SCH (08:24)
[2018-08-22] MEDS: Psyllium 1 PACKET POWD.PACK PO SCH ×2 (09:55→19:52)
--- NOTE | 2018-08-22 09:59 | Internal Med Progress Note ---
Date of Encounter: 08/22/18 Time of Encounter: 09:57 - Assessment and plan (1) Mechanical heart valve present Current Visit: Yes Status: Chronic Assessment and plan: Continue Coumadin and lovenox. Monitor INR. Pharmacy to dose. INR 1.6 (2) Dementia Current Visit: Yes Status: Chronic Assessment and plan: Continue supportive care. Progressive disease. Assist with ADLs. Therapy to eval. Qualifiers: Dementia type: unspecified type Dementia behavioral disturbance: without behavioral disturbance Qualified Code(s): F03.90 - Unspecified dementia without behavioral disturbance (3) Fall Current Visit: Yes Status: Acute Assessment and plan: Patient sustained fall at home. continue PT. Assist with ADLs as necessary. Qualifiers: Encounter type: sequela Qualified Code(s): W19.XXXS - Unspecified fall, sequela - Time Spent With Patient less than 15 minutes - Subjective Interval history: Patient INR continues to be sub therapeutic, 1.6 today. Discussed with patient to stay another day to try to regulate INR. Patient denies any pain or discomfort, denies fever, chills, nausea vomiting or diarrhea. participating with therapy. discussed transferring to F due to noncompliance with medication and dementia. - Constitutional Vitals: Temp Pulse Resp BP Pulse Ox 97.6 F 88 16 155/65 97 08/22/18 08:00 08/22/18 08:00 08/22/18 08:00 08/22/18 08:00 08/22/18 08:00 General appearance: Present: cooperative, A&O X 3, pleasant, no acute distress, answers questions appropriately - Head Head exam: Present: atraumatic, normocephalic - Eye Eye exam: Present: PERRL, conjuntiva pink, sclera anicteric Pupils: Present: PERRL - Neck Neck exam general surgery: Present: supple, trachea midline. Absent: lymphadenopathy - Respiratory Respiratory exam: Present: CTAB. Absent: accessory muscle use, rales, rhonchi, wheezes - Cardiovascular Cardiovascular exam: Present: RRR, +S1, +S2. Absent: diastolic murmur, gallop, rubs, systolic murmur Additional comments: artificial valve - GI/Abdominal GI/Abdominal exam: Present: normal bowel sounds, soft, no peritoneal signs. Absent: distended, tenderness - Extremities Exam Extremities exam: Present: warm, radial pulses palpable and symmetrical. Absent: calf tenderness, cyanotic, pedal edema - Neurological Exam Neurological exam: Present: CN II-XII intact, oriented X3, no focal deficits. Absent: pronater drift, facial droop, speech deficit - Skin Skin exam: Present: dry, intact Internal Medicine: Result - Labs CBC & Chem 7: 08/18/18 04:43 08/19/18 07:55 - ABG Interpretation ABG results: PT/INR, D-dimer PT 18.7 Seconds (9.4-12.1) H 08/22/18 05:50 Consult Discharge Plan - Plan Referrals: Jose Abbott, RETAIL BRAND AMBASSADOR [Primary Care Provider] -
[2018-08-22] MEDS ORDERED: *HR* Warfarin 7.5 MG TABLET PO ONE (18:00)
[2018-08-23] MEDS: *HR* Enoxaparin 120 MG/0.8 ML SYRINGE SQ SCH ×2 (04:27→17:02)
[2018-08-23 05:06] LABS: INR 1.6; Prothrombin Time 18.2 Seconds (9.4-12.1)
[2018-08-23] MEDS: Psyllium 1 PACKET POWD.PACK PO SCH ×2 (08:20→19:36)
[2018-08-23] MEDS: Finasteride 5 MG TABLET PO SCH (08:21)
[2018-08-23] MEDS: Lactobacillus 1 EACH CAP.SPRINK PO SCH ×2 (08:21→19:36)
[2018-08-23] MEDS: Famotidine 20 MG TABLET PO SCH (08:21)
[2018-08-23] MEDS: Sucralfate 1 GM TABLET PO SCH ×4 (08:21→19:35)
[2018-08-23] MEDS: Furosemide 20 MG TABLET PO SCH (08:21)
--- NOTE | 2018-08-23 10:17 | Internal Med Progress Note ---
Date of Encounter: 08/23/18 Time of Encounter: 10:14 - Assessment and plan (1) Dementia Current Visit: Yes Status: Chronic Assessment and plan: Patient continues to have difficulty with short-term memory recall which was noted during conversation and questioning. Also states that at times he has difficulty maintaining his INR at home which may indicate poor medication compliance. Patient reportedly lives at home alone. Patient being prepared for discharge tomorrow to SNF Qualifiers: Dementia type: unspecified type Dementia behavioral disturbance: without behavioral disturbance Qualified Code(s): F03.90 - Unspecified dementia without behavioral disturbance (2) Atrial fibrillation Current Visit: Yes Status: Acute Assessment and plan: No acute issues. Patient's heart rate remains irregular but ventricular rate is controlled less than 100. Vital signs are stable. Patient continues on Coumadin which currently is subtherapeutic at 1.6. Patient is plan for discharge tomorrow and which she will continue on Lovenox bridging until he is therapeutic. Patient will be followed at custodial facility. 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 Patient remains subtherapeutic with his Coumadin INR at 1.6. Patient received extra dosing of Coumadin today and will recheck his INR the morning. Patient continues on weight-based Lovenox at this time for bridging. - Time Spent With Patient less than 15 minutes - Subjective Interval history: Patient appears relaxed and currently denies any discomforts or shortness of b reath. Patient states that he is anxious to be discharged home. Patient noted to continue to have difficulty with short-term memory recall which was noted during his conversation. - Constitutional Vitals: Temp Pulse Resp BP Pulse Ox 97.7 F 68 16 156/88 97 08/23/18 07:23 08/23/18 07:23 08/23/18 07:23 08/23/18 07:23 08/23/18 07:23 General appearance: Present: cooperative, A&O X 3, pleasant, no acute distress, answers questions appropriately - Head Head exam: Present: atraumatic, normocephalic - Eye Eye exam: Present: PERRL, conjuntiva pink, sclera anicteric Pupils: Present: PERRL - Neck Neck exam general surgery: Present: supple, trachea midline. Absent: lymphadenopathy - Respiratory Respiratory exam: Present: decreased breath sounds, CTAB. Absent: accessory muscle use, rales, rhonchi, wheezes - Cardiovascular Cardiovascular exam: Present: RRR, +S1, +S2, systolic murmur. Absent: diastolic murmur, gallop, rubs Additional comments: Patient continues with systolic click murmur. - GI/Abdominal GI/Abdominal exam: Present: normal bowel sounds, soft, no peritoneal signs. Absent: distended, tenderness - Extremities Exam Extremities exam: Present: warm, radial pulses palpable and symmetrical. Absent: calf tenderness, cyanotic, pedal edema - Neurological Exam Neurological exam: Present: CN II-XII intact, oriented X3, no focal deficits. Absent: pronater drift, facial droop, speech deficit - Skin Skin exam: Present: dry, intact Internal Medicine: Result - Labs CBC & Chem 7: 08/18/18 04:43 08/19/18 07:55 - ABG Interpretation ABG results: PT/INR, D-dimer PT 18.2 Seconds (9.4-12.1) H 08/23/18 04:39 Consult Discharge Plan - Plan Referrals: Jose Abbott, DATA SOLUTIONS ARCHITECT [Primary Care Provider] -
--- NOTE | 2018-08-23 11:00 | Discharge Summary ---
<Cristobal Duarte Cindy - Last Filed: 08/23/18 11:10> Orders not resulted at time of discharge: Pending orders 08/24/18 06:16 Prothrombin Time INR [COAG] DAILY Date of Encounter: 08/23/18 - Discharge Diagnosis (1) Dementia Priority: Primary Status: Chronic Comments: Patient continues with poor short term memory recall. Patient also with questionable compliance with his Coumadin as he has had multiple issues with maintaining a therapeutic INR. Patient currently lives at home but has been evaluated by therapy with recommendations for 24-hour supervision. Patient is being discharged to a shelter facility for further vision as his INR remains subtherapeutic. Patient is being pitched with Lovenox. Qualifiers: Dementia type: unspecified type Dementia behavioral disturbance: without behavioral disturbance Qualified Code(s): F03.90 - Unspecified dementia without behavioral disturbance (2) Atrial fibrillation Priority: Secondary Status: Chronic Comments: No acute issues during stay of facility. Patient's heart rate remains irregular with a controlled rate less than 100. Patient continues on Coumadin. Qualifiers: Atrial fibrillation type: unspecified Qualified Code(s): I48.91 - Unspecified atrial fibrillation (3) Mechanical heart valve present Priority: Secondary Status: Chronic Comments: No acute issues during her stay. Patient continues on Coumadin, which remains subtherapeutic on INR. He is in bridge with Lovenox and being discharged to a shelter facility for further treatment and evaluation until his INR is therapeutic. Patient with questionable compliance on Coumadin due to his poor short-term memory recall. Hospital course: Mr. Hunt is a 78 year old male, who was originally admitted for a near syncopal episode and diarrhea. Patient was confused at time of admission with reports the patient has been living alone. Patient with noted difficulty with short-term memory recall. Patient was also subtherapeutic on his INR for his Coumadin, which he takes for his mechanical valve replacement and for atrial fibrillation. Patient has been bridged with weight-based Lovenox during stay at this facility with titration of Coumadin to obtain a INR greater than 2.5. Patient continues with subtherapeutic INR, which continues to be titrated per pharmacy. Patient has progressed well with physical therapy during his stay. Patient is being discharged to a shelter facility for further evaluation and treatment and to also continue with his therapy. Patient also continues difficulty with short-term memory recall and has recommendations to therapy for 24-hour supervision. Patient is continue follow-up with his poly area supervisor and PCP. Discharge discussed with: patient Time spent discussing smoking cessation with patient: 3 to 10 minutes - Time Spent with Patient Total time spent providing and/or coordinating discharge services: Time spent: Less than 30 minutes - Discharge Medications Prescriptions: No Action Tamsulosin HCl [Flomax] 0.4 mg PO HS Ranitidine HCl [Zantac] 300 mg PO DAILY Furosemide [Lasix] 20 mg PO DAILY Finasteride [Proscar] 5 mg PO DAILY Sertraline [Zoloft] 25 mg PO HS Metoprolol [Lopressor] 50 mg PO DAILY Lisinopril [Zestril] 10 mg PO DAILY Nitroglycerin [Nitrostat] 0.4 mg SL Q5MIN PRN PRN Reason: Chest Pain Warfarin [Coumadin] 3 mg PO 1800 Simvastatin [Zocor] 40 mg PO HS Clopidogrel [Plavix] 75 mg PO DAILY Warfarin 3.5 mg PO DAILY Home Medications: Finasteride [Proscar] 5 mg PO DAILY 06/06/17 [History] Furosemide [Lasix] 20 mg PO DAILY 06/06/17 [History] Lisinopril [Zestril] 10 mg PO DAILY 06/06/17 [History] Metoprolol [Lopressor] 50 mg PO DAILY 06/06/17 [History] Ranitidine HCl [Zantac] 300 mg PO DAILY 06/06/17 [History] Sertraline [Zoloft] 25 mg PO HS 06/06/17 [History] Tamsulosin HCl [Flomax] 0.4 mg PO HS 06/06/17 [History] Nitroglycerin [Nitrostat] 0.4 mg SL Q5MIN PRN 09/04/17 [History] Clopidogrel [Plavix] 75 mg PO DAILY 08/17/18 [History] Simvastatin [Zocor] 40 mg PO HS 08/17/18 [History] Warfarin 3.5 mg PO DAILY 08/17/18 [History] Warfarin [Coumadin] 3 mg PO 1800 08/17/18 [History] Allergies/Adverse Reactions: Allergy/AdvReac Type Severity Reaction Status Date / Time adhesive Allergy Blister Verified 03/22/18 09:27 aspirin Allergy Swelling Verified 03/22/18 09:27 of Lip/Tongue/Throat Date of admission: 08/21/18 11:58 Primary care physician: Jose Abbott CNP Consults: 08/17/18 15:11 Consult to Advertising Internship [CONS] Routine Reason for SW Consult: Home safety environment 08/18/18 18:55 Consult to Occupational Therapy [CONS] Routine Comment: Evaluate, develop and implement POC Reason for Consult: eval for ecf Does patient have active BEDREST order?: No Is patient medically & hemodynamically stable?: Yes Consult to Physical Therapy [CONS] Routine Comment: Evaluate, develop and implement POC Reason for Consult: eval for ecf Does patient have active BEDREST order?: No Is patient medically & hemodynamically stable?: Yes Discharging clinician: Will Hayes - Constitutional Vitals: Temp Pulse Resp BP Pulse Ox 97.7 F 68 16 156/88 97 08/23/18 07:23 08/23/18 07:23 08/23/18 07:23 08/23/18 07:23 08/23/18 07:23 General appearance: Present: cooperative, A&O X 3, pleasant, no acute distress, answers questions appropriately - Head Head exam: Present: atraumatic, normocephalic - Eye Eye exam: Present: PERRL, conjuntiva pink, sclera anicteric Pupils: Present: PERRL - Neck Neck exam general surgery: Present: supple, trachea midline. Absent: lymphadenopathy - Respiratory Respiratory exam: Present: decreased breath sounds, CTAB. Absent: accessory muscle use, rales, rhonchi, wheezes - Cardiovascular Cardiovascular exam: Present: irregular rhythm, RRR, +S1, +S2. Absent: diastolic murmur, gallop, rubs, systolic murmur Additional comments: Patient with a systolic click murmur. - GI/Abdominal GI/Abdominal exam: Present: normal bowel sounds, soft, no peritoneal signs. Absent: distended, tenderness - Extremities Exam Extremities exam: Present: warm, radial pulses palpable and symmetrical. Absent: calf tenderness, cyanotic, pedal edema - Neurological Exam Neurological exam: Present: CN II-XII intact, oriented X3, no focal deficits. Absent: pronater drift, facial droop, speech deficit - Skin Skin exam: Present: dry, intact - Patient Status Disposition: Transfer SNF Condition: Fair Functional capacity at discharge: uses cane/walker Overall status at discharge: patient is progressing back to baseline - Discharge Instructions Follow Up With: Jose Abbott CNP [Primary Care Provider] - Forms: ED Satisfaction Letter - Diet and Activity Activity: ambulate only with your walker, as per physical therapy, increase activity as tolerated Diet: low fat, low cholesterol, low salt diet <Will Hayes - Last Filed: 08/24/18 09:50> - NOTES TO OUTPATIENT PROVIDER Notes to Outpatient Provider: Will need to be on therapeutic Lovenox until INR over 2.4. Orders not resulted at time of discharge: Pending orders 08/24/18 09:23 Prothrombin Time INR [COAG] DAILY Date of Encounter: 08/24/18 Time of Encounter: 09:45 - Discharge Diagnosis (1) Dementia Priority: Primary Status: Chronic Comments: Patient has no reversible findings. This has kept him from properly taking medicines. This is especially concerning given his mechanical valve and need for therapeutic Coumadin. Qualifiers: Dementia type: unspecified type Dementia behavioral disturbance: without behavioral disturbance Qualified Code(s): F03.90 - Unspecified dementia without behavioral disturbance (2) Mechanical heart valve present Priority: Secondary Status: Chronic (3) Atrial fibrillation Priority: Secondary Status: Chronic Qualifiers: Atrial fibrillation type: unspecified Qualified Code(s): I48.91 - Unspecified atrial fibrillation (4) Fall Priority: Secondary Status: Acute Comments: Patient has minimized this but it is fairly frequent at home, per history from family. Qualifiers: Encounter type: sequela Qualified Code(s): W19.XXXS - Unspecified fall, sequela Hospital course: This morning, patient without complaints. He moved his bowels this morning without hematochezia or other problem. Patient has no complaint of chest discomfort, dyspnea, orthopnea, palpitations, nausea or vomiting, constipation or diarrhea, other changes in bowel habits, difficulty with urination, rash or itching, or other new complaints, except as mentioned above. Review of systems is otherwise negative. I discussed management of patient's care with nursing staff. - Time Spent with Patient Total time spent providing and/or coordinating discharge services: Date of admission: 08/21/18 11:58 Primary care physician: Jose Abbott CNP Consults: 08/17/18 15:11 Consult to Advertising Internship [CONS] Routine Reason for SW Consult: Home safety environment 08/18/18 18:55 Consult to Occupational Therapy [CONS] Routine Comment: Evaluate, develop and implement POC Reason for Consult: eval for ecf Does patient have active BEDREST order?: No Is patient medically & hemodynamically stable?: Yes Consult to Physical Therapy [CONS] Routine Comment: Evaluate, develop and implement POC Reason for Consult: eval for ecf Does patient have active BEDREST order?: No Is patient medically & hemodynamically stable?: Yes - Constitutional Vitals: Temp Pulse Resp BP Pulse Ox 97.3 F L 67 18 153/81 98 08/24/18 07:32 08/24/18 07:32 08/24/18 07:32 08/24/18 07:32 08/24/18 07:32 Exam: Examination: (Except as mentioned above): General: In no apparent distress. Alert and oriented 3. Nondiaphoretic. Head: Atraumatic and normocephalic. Respiratory: No use of accessory muscles. Lungs are clear throughout. Normal airflow. Cardiovascular: Regular rate and rhythm without murmur appreciated. Abdomen: Bowel sounds are normal. No hepatosplenomegaly mass or tenderness appreciated. Obese and therefore difficult to palpate deeply. Patient is examined upright in chair and this also limits exam. Extremities: No cyanosis clubbing or edema. Skin: Warm and non-diaphoretic with no new lesions noted.
--- NOTE | 2018-08-23 11:09 | Physician Discharge Referral ---
ExtendedCare Referral Info Provider in Charge after Transfer: PCP Institutional Level of Care: Skilled - Diagnosis (1) Dementia Priority: Primary Status: Chronic (2) Atrial fibrillation Priority: Secondary Status: Chronic (3) Mechanical heart valve present Priority: Secondary Status: Chronic Prognosis: Good Aware of Diagnosis: Patient Aware of Prognosis: Patient - Transfer Medications Home Medications: Finasteride [Proscar] 5 mg PO DAILY 06/06/17 [History] Furosemide [Lasix] 20 mg PO DAILY 06/06/17 [History] Lisinopril [Zestril] 10 mg PO DAILY 06/06/17 [History] Metoprolol [Lopressor] 50 mg PO DAILY 06/06/17 [History] Ranitidine HCl [Zantac] 300 mg PO DAILY 06/06/17 [History] Sertraline [Zoloft] 25 mg PO HS 06/06/17 [History] Tamsulosin HCl [Flomax] 0.4 mg PO HS 06/06/17 [History] Nitroglycerin [Nitrostat] 0.4 mg SL Q5MIN PRN 09/04/17 [History] Clopidogrel [Plavix] 75 mg PO DAILY 08/17/18 [History] Simvastatin [Zocor] 40 mg PO HS 08/17/18 [History] Warfarin 3.5 mg PO DAILY 08/17/18 [History] Warfarin [Coumadin] 3 mg PO 1800 08/17/18 [History] Allergies/Adverse Reactions: Allergy/AdvReac Type Severity Reaction Status Date / Time adhesive Allergy Blister Verified 03/22/18 09:27 aspirin Allergy Swelling Verified 03/22/18 09:27 of Lip/Tongue/Throat - Respiratory Orders Smoking Cessation: Smoking cessation has been advised. For more information, call the [place] Tobacco Quit Line at 4-734-OSDE-NOW. - Lab Orders Lab Orders: 2 Step Mantoux Test per State regulation, CBC, U/A, Lenny 17, CXR yearly - Ancillary Orders May use pressure relief devices daily prn, May go on SARA w/family/respon republican w/meds at nurse discretion PRN, May consult with Dentist, Cabinetmaker Helper, Solar Business Developer PRN - Advance Directives Code Status: Full Code - Mobility Orders Ambulate - Rehabiliation Orders Rehab Potential: Good Rehab Orders: ROM Exercises, Evaluation for Physical Therapy, Evaluation for O ccupational Therapy - Treatments Skin tear care topically daily PRN per policy, May check for fecal impaction rectally daily PRN, Fleet enema rectally every other day PRN cleansing purposes - Diet Orders Regular, No Added Salt (ISABELLE), Cardiac CERTIFICATION: I certify that the transfer of the above named patient to an Extended Care Facility is necessary for the continuing treatment of the diagnosis listed. The above information is true and accurate reflection of patient's current condition. Confidential - Redisclosure prohibited without a patient's written consent.
[2018-08-23] MEDS ORDERED: *HR* Warfarin 7.5 MG TABLET PO ONE (18:00)
[2018-08-24] MEDS: *HR* Enoxaparin 120 MG/0.8 ML SYRINGE SQ SCH (06:28)
[2018-08-24] MEDS: Furosemide 20 MG TABLET PO SCH (08:53)
[2018-08-24] MEDS: Finasteride 5 MG TABLET PO SCH (08:53)
[2018-08-24] MEDS: Lactobacillus 1 EACH CAP.SPRINK PO SCH (08:53)
[2018-08-24] MEDS: Sucralfate 1 GM TABLET PO SCH (08:53)
[2018-08-24] MEDS: Famotidine 20 MG TABLET PO SCH (08:53)
[2018-08-24] MEDS: Psyllium 1 PACKET POWD.PACK PO SCH (08:55)
[2018-08-24 10:21] LABS: Prothrombin Time 23.3 Seconds (9.4-12.1)
[2018-08-24 12:43] VITALS: BP 150/63
== END 2018-08-24 11:45 | DRG 884 ==
LOC: EMEROOGRE 12:37 → INPGRE 12:37
PROVIDERS: ADMIT Internal Medicine; ATTEND Internal Medicine

== ENCOUNTER 2020-10-16 15:35 | Inpatient (IN) ==
[2020-10-16 17:08] LABS: Basophils % 0.3 %; Eosinophils # 0.3 K/mcL (0.0-0.6); Hematocrit 28.5 % (37.5-50.1); Hemoglobin 9.1 g/dL (12.9-16.9); Immature Granulocytes % 0.3 % (0-4); Lymphocytes # 0.9 K/mcL (0.6-4.6); Mean Corpuscular HGB Conc 31.9 g/dL (31.6-35.5); Mean Corpuscular Hemoglobin 29.1 pg (28.0-33.3); Mean Corpuscular Volume 91.1 fL (83.0-100.0); Mean Platelet Volume 11.4 fL (9.4-12.4); Monocytes # 0.9 K/mcL (0.0-1.3); Neutrophils # 5.8 K/mcL (1.6-8.9); Platelet Count 192 K/mcL (140-400); Red Blood Count 3.13 M/mcL (4.19-5.50); Segmented Neutrophils % 73.4 %; White Blood Count 7.9 K/mcL (4.3-11.1)
[2020-10-16 17:19] LABS: INR 4.4
[2020-10-16] MEDS ORDERED: *HR* Phytonadione 5 MG TABLET PO ONE ×2 (18:01→18:27)
[2020-10-16] MEDS ORDERED: FACTOR IX IVPB ONE (18:07)
[2020-10-16] MEDS ORDERED: WATER FOR INJ IVPB ONE (18:07)
[2020-10-16 22:45] LABS: INR 3.6; Prothrombin Time 39.8 Seconds (9.4-12.1)
[2020-10-17] MEDS ORDERED: Nitroglycerin 0.4 MG TAB.SUBL SL PRN (01:54)
[2020-10-17] MEDS ORDERED: Naloxone 0.4 MG/ML INJ IVP PRN (01:58)
[2020-10-17 04:46] LABS: Basophils % 0.4 %; Eosinophils # 0.3 K/mcL (0.0-0.6); Eosinophils % 3.6 %; Hematocrit 29.2 % (37.5-50.1); Immature Granulocytes % 0.3 % (0-4); Lymphocytes # 0.8 K/mcL (0.6-4.6); Lymphocytes % 10.5 %; Mean Corpuscular HGB Conc 30.8 g/dL (31.6-35.5); Mean Corpuscular Hemoglobin 28.2 pg (28.0-33.3); Mean Corpuscular Volume 91.5 fL (83.0-100.0); Mean Platelet Volume 11.8 fL (9.4-12.4); Monocytes # 0.8 K/mcL (0.0-1.3); Monocytes % 10.6 %; Neutrophils # 5.5 K/mcL (1.6-8.9); Platelet Count 203 K/mcL (140-400); Red Blood Count 3.19 M/mcL (4.19-5.50); Red Cell Distribution Width 15.9 % (11.5-14.5); Segmented Neutrophils % 74.6 %; White Blood Count 7.4 K/mcL (4.3-11.1)
[2020-10-17 05:06] LABS: INR 2.2; Prothrombin Time 24.4 Seconds (9.4-12.1)
[2020-10-17] MEDS: Ascorbic Acid 500 MG TABLET PO SCH (10:43)
[2020-10-17] MEDS: Cholecalciferol (D-3) 1,000 UNIT (25MCG) TABLET PO SCH (10:43)
[2020-10-17] MEDS: Finasteride 5 MG TABLET PO SCH (10:45)
[2020-10-17] MEDS: Furosemide 20 MG TABLET PO SCH (10:45)
[2020-10-17] MEDS: lisinopriL 10 MG TABLET PO SCH (10:46)
[2020-10-17 11:08] LABS: Alanine Aminotransferase 25 Units/L (7-52); Albumin 3.2 g/dL (3.5-5.7); Albumin/Globulin Ratio 0.8 (1.1-2.2); Alkaline Phosphatase 69 Units/L (34-104); Aspartate Amino Transferase 22 Units/L (13-39); BUN/Creatinine Ratio 17 (6-26); Bilirubin,Total 1.5 mg/dL (0.3-1.0); Blood Urea Nitrogen 16 mg/dL (8-23); Calcium 8.4 mg/dL (8.6-10.3); Carbon Dioxide 22 mEq/L (23-29); Chloride 106 mEq/L (98-107); Globulin 3.8 g/dL (2.4-3.5); Glucose 107 mg/dL (70-105); Osmolality,Calculated 286 (280-300); Sodium 137 mEq/L (136-145); eGFR For African Americans > 60 (> 60); eGFR For Non-African Americans > 60 (> 60)
[2020-10-18 05:16] LABS: Hematocrit 28.7 % (37.5-50.1); Hemoglobin 8.9 g/dL (12.9-16.9); Mean Corpuscular Hemoglobin 28.2 pg (28.0-33.3); Mean Corpuscular Volume 90.8 fL (83.0-100.0); Mean Platelet Volume 11.6 fL (9.4-12.4); Platelet Count 198 K/mcL (140-400); Red Blood Count 3.16 M/mcL (4.19-5.50); Red Cell Distribution Width 15.7 % (11.5-14.5); White Blood Count 7.6 K/mcL (4.3-11.1)
[2020-10-18 05:31] LABS: INR 1.4; Prothrombin Time 15.7 Seconds (9.4-12.1)
[2020-10-18 05:34] LABS: Alanine Aminotransferase 24 Units/L (7-52); Albumin 3.2 g/dL (3.5-5.7); Albumin/Globulin Ratio 0.8 (1.1-2.2); Alkaline Phosphatase 69 Units/L (34-104); Aspartate Amino Transferase 18 Units/L (13-39); BUN/Creatinine Ratio 16 (6-26); Bilirubin,Total 1.3 mg/dL (0.3-1.0); Blood Urea Nitrogen 16 mg/dL (8-23); Calcium 8.5 mg/dL (8.6-10.3); Carbon Dioxide 25 mEq/L (23-29); Chloride 106 mEq/L (98-107); Globulin 3.8 g/dL (2.4-3.5); Glucose 99 mg/dL (70-105); Magnesium 2.1 mg/dL (1.6-2.6); Osmolality,Calculated 283 (280-300); Potassium 3.9 mEq/L (3.5-5.1); Sodium 136 mEq/L (136-145); eGFR For African Americans > 60 (> 60); eGFR For Non-African Americans > 60 (> 60)
[2020-10-18 08:22] LABS: C-Reactive Protein 102 mg/L (Less than 10)
[2020-10-18 08:41] LABS: Ferritin 235 ng/mL (20-250)
[2020-10-18] MEDS: lisinopriL 10 MG TABLET PO SCH (09:30)
[2020-10-18] MEDS: Furosemide 20 MG TABLET PO SCH (09:30)
[2020-10-18] MEDS: Ascorbic Acid 500 MG TABLET PO SCH (09:30)
[2020-10-18] MEDS: Cholecalciferol (D-3) 1,000 UNIT (25MCG) TABLET PO SCH (09:30)
[2020-10-18] MEDS: Finasteride 5 MG TABLET PO SCH (09:30)
[2020-10-18] MEDS ORDERED: *HR* Heparin 5,000 UNIT/ML VIAL IVP PRN ×2 (12:00)
[2020-10-18] MEDS ORDERED: *HR* Heparin 5,000 UNIT/ML VIAL IVP ONE (12:00)
[2020-10-18] MEDS ORDERED: 0.9 % Sodium Chloride 500 ML ONE (12:56)
[2020-10-18] MEDS: Heparin 25,000UNIT/250ML 1/2NS 25,000 UNIT/250 ML IV.SOLN IVC SCH (14:41)
[2020-10-18] MEDS ORDERED: Warfarin perPT PO PRN (18:00)
[2020-10-18] MEDS ORDERED: *HR* Warfarin 5 MG TABLET PO ONE (18:00)
[2020-10-19 03:10] LABS: Basophils % 0.4 %; Eosinophils # 0.3 K/mcL (0.0-0.6); Eosinophils % 3.9 %; Hematocrit 25.3 % (37.5-50.1); Immature Granulocytes % 0.3 % (0-4); Lymphocytes # 1.1 K/mcL (0.6-4.6); Lymphocytes % 14.1 %; Mean Corpuscular HGB Conc 31.6 g/dL (31.6-35.5); Mean Corpuscular Hemoglobin 28.9 pg (28.0-33.3); Mean Corpuscular Volume 91.3 fL (83.0-100.0); Mean Platelet Volume 11.6 fL (9.4-12.4); Monocytes # 0.8 K/mcL (0.0-1.3); Monocytes % 10.8 %; Neutrophils # 5.4 K/mcL (1.6-8.9); Platelet Count 197 K/mcL (140-400); Red Blood Count 2.77 M/mcL (4.19-5.50); Red Cell Distribution Width 15.9 % (11.5-14.5); Segmented Neutrophils % 70.5 %; White Blood Count 7.7 K/mcL (4.3-11.1)
[2020-10-19 03:24] LABS: INR 1.3; Prothrombin Time 14.9 Seconds (9.4-12.1)
[2020-10-19 03:27] LABS: BUN/Creatinine Ratio 18 (6-26); Blood Urea Nitrogen 19 mg/dL (8-23); Carbon Dioxide 23 mEq/L (23-29); Chloride 106 mEq/L (98-107); Glucose 94 mg/dL (70-105); Osmolality,Calculated 282 (280-300); Potassium 3.7 mEq/L (3.5-5.1); Sodium 135 mEq/L (136-145); eGFR For African Americans > 60 (> 60); eGFR For Non-African Americans > 60 (> 60)
[2020-10-19] MEDS: Heparin 25,000UNIT/250ML 1/2NS 25,000 UNIT/250 ML IV.SOLN IVC SCH ×3 (05:32→21:54)
[2020-10-19] MEDS: Cholecalciferol (D-3) 1,000 UNIT (25MCG) TABLET PO SCH (09:08)
[2020-10-19] MEDS: Ascorbic Acid 500 MG TABLET PO SCH (09:08)
[2020-10-19] MEDS: Furosemide 20 MG TABLET PO SCH (09:09)
[2020-10-19] MEDS: Finasteride 5 MG TABLET PO SCH (09:09)
[2020-10-19] MEDS: lisinopriL 10 MG TABLET PO SCH (09:10)
[2020-10-19] MEDS ORDERED: *HR* Warfarin 5 MG TABLET PO ONE (18:00)
[2020-10-20 03:12] LABS: Basophils % 0.4 %; Eosinophils # 0.3 K/mcL (0.0-0.6); Eosinophils % 4.2 %; Hematocrit 26.4 % (37.5-50.1); Hemoglobin 8.4 g/dL (12.9-16.9); Immature Granulocytes % 0.3 % (0-4); Lymphocytes # 1.2 K/mcL (0.6-4.6); Lymphocytes % 15.1 %; Mean Corpuscular HGB Conc 31.8 g/dL (31.6-35.5); Mean Corpuscular Hemoglobin 28.8 pg (28.0-33.3); Mean Corpuscular Volume 90.4 fL (83.0-100.0); Mean Platelet Volume 11.7 fL (9.4-12.4); Monocytes # 0.8 K/mcL (0.0-1.3); Monocytes % 10.7 %; Neutrophils # 5.5 K/mcL (1.6-8.9); Platelet Count 235 K/mcL (140-400); Red Blood Count 2.92 M/mcL (4.19-5.50); Red Cell Distribution Width 15.9 % (11.5-14.5); Segmented Neutrophils % 69.3 %; White Blood Count 7.9 K/mcL (4.3-11.1)
[2020-10-20 03:19] LABS: INR 1.4; Prothrombin Time 15.5 Seconds (9.4-12.1)
[2020-10-20 03:27] LABS: BUN/Creatinine Ratio 19 (6-26); Blood Urea Nitrogen 22 mg/dL (8-23); Calcium 8.3 mg/dL (8.6-10.3); Carbon Dioxide 25 mEq/L (23-29); Chloride 107 mEq/L (98-107); Glucose 96 mg/dL (70-105); Osmolality,Calculated 289 (280-300); Potassium 3.9 mEq/L (3.5-5.1); Sodium 138 mEq/L (136-145); eGFR For African Americans > 60 (> 60); eGFR For Non-African Americans > 60 (> 60)
[2020-10-20] MEDS: Cholecalciferol (D-3) 1,000 UNIT (25MCG) TABLET PO SCH (09:18)
[2020-10-20] MEDS: lisinopriL 10 MG TABLET PO SCH (09:18)
[2020-10-20] MEDS: Furosemide 20 MG TABLET PO SCH (09:19)
[2020-10-20] MEDS: Ascorbic Acid 500 MG TABLET PO SCH (09:19)
[2020-10-20] MEDS: Finasteride 5 MG TABLET PO SCH (09:19)
[2020-10-20] MEDS: Heparin 25,000UNIT/250ML 1/2NS 25,000 UNIT/250 ML IV.SOLN IVC SCH (16:55)
[2020-10-20] MEDS ORDERED: *HR* Warfarin 5 MG TABLET PO ONE (18:00)
[2020-10-21 06:54] LABS: INR 1.4; Prothrombin Time 15.2 Seconds (9.4-12.1)
[2020-10-21 07:57] VITALS: RESP 16
[2020-10-21] MEDS: lisinopriL 10 MG TABLET PO SCH (09:52)
[2020-10-21] MEDS: Finasteride 5 MG TABLET PO SCH (09:52)
[2020-10-21] MEDS: Ascorbic Acid 500 MG TABLET PO SCH (09:52)
[2020-10-21] MEDS: Furosemide 20 MG TABLET PO SCH (09:52)
[2020-10-21] MEDS: Cholecalciferol (D-3) 1,000 UNIT (25MCG) TABLET PO SCH (09:52)
[2020-10-21 10:37] LABS: Basophils % 0.7 %; Eosinophils # 0.2 K/mcL (0.0-0.6); Eosinophils % 3.9 %; Hematocrit 27.9 % (37.5-50.1); Hemoglobin 8.8 g/dL (12.9-16.9); Immature Granulocytes % 0.5 % (0-4); Lymphocytes # 0.7 K/mcL (0.6-4.6); Lymphocytes % 11.8 %; Mean Corpuscular HGB Conc 31.5 g/dL (31.6-35.5); Mean Corpuscular Hemoglobin 28.8 pg (28.0-33.3); Mean Corpuscular Volume 91.2 fL (83.0-100.0); Mean Platelet Volume 11.6 fL (9.4-12.4); Monocytes # 0.6 K/mcL (0.0-1.3); Monocytes % 9.2 %; Neutrophils # 4.5 K/mcL (1.6-8.9); Platelet Count 245 K/mcL (140-400); Red Blood Count 3.06 M/mcL (4.19-5.50); Segmented Neutrophils % 73.9 %; White Blood Count 6.1 K/mcL (4.3-11.1)
[2020-10-21 10:49] VITALS: PULSE 61
[2020-10-21 17:03] VITALS: BP 133/56; TEMP 98.3; O2SAT 99
[2020-10-21] MEDS ORDERED: *HR* Warfarin 5 MG TABLET PO ONE (18:00)
== END 2020-10-21 19:34 | DRG 604 ==
LOC: EMEROOGRE 15:35 → INPGRE 10-17 00:44 → SUATTDRO 10-17 00:44 → INPGRE 10-17 01:08
PROVIDERS: ADMIT Student in an Organized Health Care Education/Training Program; ATTEND Family Medicine